=== PATIENT | female | born 1950 | race Hispanic/Latino ===

== ENCOUNTER 2017-04-30 10:36 | Outpatient (CLI) | payer MEDICARE ==
--- NOTE | 2017-04-30 11:41 | Mammography Report ---
BILATERAL MAMMOGRAM: FINDINGS: There are scattered fibroglandular densities (approximately 25%-50% glandular). No mass, distortion, suspicious calcification, or skin change is seen. No interval change compared to prior exam in September 2014. CAD was utilized. IMPRESSION: Negative mammogram. There is no mammographic evidence of malignancy. RECOMMENDATION: Follow-up per ACS guidelines. BI-RADS CATEGORY: 1 = Negative ACR BI-RADS MAMMOGRAPHIC CODES: 0 = Needs additional imaging evaluation; 1 = Negative; 2 = Benign; 3 = Probably benign; 4 = Suspicious; 5 = Malignant; 6 = Known biopsy-proven malignancy COMMENT: 1. Dense breast tissue, i.e., adenosis, fibrocystic changes, etc., may obscure an underlying neoplasm. 2. Approximately 10% of cancers are not detected with mammography. 3. A negative mammography report should not delay biopsy if a clinically suspicious mass is present. COMMENT: Patient follow-up letters are generated in [employer].
== END 2017-04-30 10:37 | disposition home or self-care (01) ==
LOC: SPVWC 10:36
PROVIDERS: ATTEND Internal Medicine
DX: Z12.31 Encounter for screening mammogram for malignant neoplasm of breast (principal)
CPT/HCPCS: 77067; G0202

== ENCOUNTER 2018-11-04 13:12 | Outpatient (CLI) | payer MEDICARE ==
--- NOTE | 2018-11-04 14:20 | Cat Scan Report ---
FINAL REPORT EXAM: CT CHEST WO CON HISTORY: LUNG NODULES TECHNIQUE: CT of chest without IV contrast. Coronal and sagittal reconstructed images provided. PRIORS: None currently available. FINDINGS: 4.4 mm spiculated pulmonary nodule subpleural right upper lobe series 3:59. 5.8 mm subpleural pulmonary nodule subpleural right upper lobe series 3:83. 22 x 20 mm irregular and 8 mm round nodules right lower lobe series 3:145-153. 14 x 17 mm nodule in the lingula series 3:135 No pneumothorax. No effusion. No consolidation. No endobronchial lesion. Main pulmonary artery is unremarkable. No aortic aneurysm. [id number] cardiomegaly. No pericardial effusion. Coronary artery disease. There is no axillary adenopathy. There is no hilar or mediastinal mass or adenopathy. Images of the esophagus are unremarkable. 3.4 mm stone mid left kidney. No hydronephrosis. No suspicious osseous lesions on this limited examination of the skeleton. Metastatic disease better evaluated with bone scan. Degenerative changes are present in the spine and both shoulders. IMPRESSION: Bilateral pulmonary nodules. Nonobstructing left renal stone. Cardiomegaly. 2017 [employer] GUIDELINES FOR PULMONARY NODULE MANAGEMENT: SOLID MULTIPLE NODULES: LOW risk patient (no significant smoking history, no history of malignancy, and a normal immune syste m) nodules: < 6 mm - No routine follow up. 6-8 mm - CT at 3-6 months. Then, consider CT at 18-24 months. > 8 mm - CT at 3-6 months. Then, consider CT at 18-24 months. HIGH risk patient, follow-up noncontrast < 6 mm - Optional CT at 12 months. 6-8 mm - CT at 3-6 months. Then, CT at 18-24 months. > 8 mm - CT at 3-6 months. Then, CT at 18-24 months. Low risk patients - minimal or absent history of smoking and or other known risk factors High risk patients - history of smoking or of other known risk factors
== END 2018-11-04 13:13 | disposition home or self-care (01) ==
LOC: CT 13:12
PROVIDERS: ATTEND Internal Medicine
DX: I51.7 Cardiomegaly (principal); N20.0 Calculus of kidney; Z87.891 Personal history of nicotine dependence; Z88.8 Allergy status to other drugs, medicaments and biological substances
CPT/HCPCS: 71250

== ENCOUNTER 2018-12-19 09:31 | Outpatient (CLI) | payer MEDICARE ==
--- NOTE | 2018-12-19 11:17 | Mammography Report ---
BILATERAL DIGITAL SCREENING MAMMOGRAM with CAD : 12/19/18 09:31:00 CLINICAL: Routine screening. COMPARISON:04/30/17 FINDINGS: The breasts are heterogeneously dense, which may obscure small masses. No mass, architectural distortion or suspicious calcifications. IMPRESSION: No mammographic evidence of malignancy. BI-RADS CATEGORY: 1 - - Negative RECOMMENDATION: Routine mammographic screening in one year. COMMENT: Patient follow-up letters are generated by our [employer] application.
== END 2018-12-19 09:32 | disposition home or self-care (01) ==
LOC: SPVWC 09:31
PROVIDERS: ATTEND Internal Medicine
DX: Z12.31 Encounter for screening mammogram for malignant neoplasm of breast (principal)
CPT/HCPCS: 77067

== ENCOUNTER 2019-02-23 11:07 | Outpatient (CLI) | payer MEDICARE ==
--- NOTE | 2019-02-24 11:45 | Cat Scan Report ---
CT CHEST WITHOUT CONTRAST INDICATION: Lung nodules. COMPARISON: 11/04/2018, 06/19/2016 and 02/25/[address]. FINDINGS: Noncontrast chest CT demonstrates stable heart size. No effusions. Coronary and aortic atherosclerotic calcifications again noted. Assessment of the great vessels and for detecting subtle lymphadenopathy limited due to lack of IV contrast. No definite significant adenopathy though suspected, to the extent assessed. Normal imaged thyroid. Grossly stable imaged lungs over the years. Mild right upper lobe scarring medially as on axial series 3, image 55 also noted in October 2018, though lesser in June 2016 and not seen in 2008. Tiny, subcentimeter faint subpleural nodular densities as in the right upper lobe on axial image 59, series 3 as also more inferiorly on axial image 79 are also stable since October 2018. A tiny, subcentimeter right lung base calcified granuloma posteriorly also again seen on axial image 48. More noticeably, largest bibasilar noncalcified nodules currently estimated at 2.4 x 1.7 cm in the right lower lobe posteromedially on axial image 152, series 3 while the lingular nodule on the left is approximately 1.3 x 1.3 cm on axial image 149. Allowing for interobserver variation, these nodules measured fairly similar in June 2016, though were then noted slightly larger since [address] appearance suggestive of benign arteriovenous malformations. No other definite new suspicious lung nodules have appeared. Slight bibasilar scarring/atelectasis as also in the right middle lobe again noted. Slight nonspecific distal esophageal prominence/thickening. Right hemidiaphragm again approximately 4.5 cm higher than the left. Contracted gallbladder. A 3 mm nonobstructing left interpolar calculus partially imaged. Multilevel spinal degenerative changes, greatest mid to lower thoracic. Bilateral shoulder degenerative changes also seen. Osteopenia not excluded. CONCLUSION: No significant interval change, as detailed above with multiple bilateral pulmonary nodules again noted, stable dating back to 2015, and felt of benign etiology then as well. In light of such findings, no serial CT followup for pulmonary nodules suggested, until otherwise clinically indicated and depending on patient risk categorization. Please also correlate with 02/25/[address] and 03/20/[address] imaging reports and findings also performed at this institution, though not retrievable at this time. Thank you for the opportunity to participate in this patient's care.
== END 2019-02-23 11:08 | disposition home or self-care (01) ==
LOC: CT 11:07
PROVIDERS: ATTEND Internal Medicine
DX: R91.8 Other nonspecific abnormal finding of lung field (principal); M19.012 Primary osteoarthritis, left shoulder; M19.011 Primary osteoarthritis, right shoulder; M47.814 Spondylosis without myelopathy or radiculopathy, thoracic region
CPT/HCPCS: 71250

== ENCOUNTER 2021-10-22 08:49 | Outpatient (CLI) | payer MEDICARE ==
--- NOTE | 2021-10-24 08:45 | Mammography Report ---
DIGITAL SCREENING MAMMOGRAM WITH CAD, 10/22/2021 CLINICAL INFORMATION / INDICATION: Routine screening mammography. SCREENING MAMMO Z12.31 TECHNIQUE: Digital bilateral 2D mammography was obtained in the craniocaudal and mediolateral obliqu e projections. This examination was interpreted with the benefit of Computer-Aided Detection analysis . COMPARISON: 10/07/2012 FINDINGS: Breast Density: There are scattered areas of fibroglandular density. No dominant mass, suspicious calcifications, or architectural distortion in either breast. IMPRESSION: No mammographic evidence of malignancy. Follow up recommendation: Routine yearly BI-RADS Category 1: NEGATIVE A "normal" or negative report should not discourage follow up or biopsy of a clinically significant f inding. A written summary of these findings will be mailed to the patient. The patient will be entered into a mammography reporting system which will generate a reminder letter for the patient's next appointmen t at the appropriate interval. The [employer] recommends yearly mammograms starting at age 40 and continuing as l angela as a woman is in good health. Breast MRI is recommended for women with an approximate 20-25% or greater lifetime risk of breast cancer, including women with a strong family history of breast or ova james cancer or who have been treated for Hodgkin's disease. Signer Name: Wilfred Rodriguez MD Signed: 10/24/2021 8:41 AM Workstation Name: [id number]
== END 2021-10-22 08:50 | disposition home or self-care (01) ==
LOC: SPVWC 08:49
PROVIDERS: ATTEND Internal Medicine
DX: Z12.31 Encounter for screening mammogram for malignant neoplasm of breast (principal)
CPT/HCPCS: 77067